=== PATIENT | female | born 1990 | race Caucasian/White ===

== ENCOUNTER 2016-10-10 10:32 | Emergency (ER) | payer OTHER ==
[~2016-10-10] VITALS: Ht 172.7 cm; Wt 74.8 kg
--- NOTE | 2016-10-10 11:15 | REP ---
Head CT without contrast: History: Question CVA. Comparison study: No comparison study. CT findings: Bone window settings demonstrate an intact bony calvarium. There is no evidence of skull fracture or incidental bony calvarial lesion. The visualized paranasal sinuses appear clear. No intraorbital abnormality is seen. On soft tissue window setting images; the lateral, third, and fourth ventricles are normal in size and position. Celaya-white differentiation pattern is normal above and below the tentorium. There are is no evidence of intracranial hemorrhage. No mass, edema, infarction, or midline shift is seen. No extra-axial fluid collection is appreciated. Impression: Negative noncontrast head CT. Signed by Darryn Palacios MD 10/10/2016 11:07 A
[2016-10-10 12:25] LABS: CONTROL LINE HCG INT CTR LINE PRESENT
[2016-10-10 12:26] LABS: INR 1.04
[2016-10-10 12:37] LABS: ANION GAP 8 MEQ/L (8-16); BLOOD UREA NITROGEN 13 MG/DL (7-18); CALCIUM LEVEL 9.4 MG/DL (8.5-10.1); CARBON DIOXIDE LEVEL 25 MEQ/L (21-32); CHLORIDE LEVEL 106 MEQ/L (98-107); CREATININE FOR GFR 0.74 MG/DL (0.55-1.02); GLOMERULAR FILTRATION RATE > 60.0 (>60); GLUCOSE, FASTING 89 MG/DL (70-105); POTASSIUM SERUM 4.1 MEQ/L (3.5-5.1); SODIUM LEVEL 139 MEQ/L (136-145)
[2016-10-10 12:47] LABS: BASO % 0.4 % (0.0-1.0); EOS # 0.2 K/mm3 (0.0-0.50); EOS % 2.1 % (0.0-3.0); LARGE UNSTAINED CELL # 0.2 K/mm3 (0.0-0.4); LARGE UNSTAINED CELL % 1.9 % (0.0-4.0); LYMPH % 17.4 % (24.0-44.0); MEAN CORPUSCULAR HEMOGLOBIN 30.3 pg (27.0-33.0); MEAN CORPUSCULAR HGB CONC 32.9 g/dl (32.0-36.5); MEAN CORPUSCULAR VOLUME 92.3 fl (80.0-96.0); MONO # 0.9 K/mm3 (0.0-0.8); MONO % 7.7 % (0.0-5.0); NEUTROPHILS # 8.1 K/mm3 (1.8-7.7); NEUTROPHILS % 70.5 % (36.0-66.0); PLATELET COUNT, AUTOMATED 328 k/mm3 (150-450); RED CELL DISTRIBUTION WIDTH 12.1 % (11.5-14.5); WHITE BLOOD COUNT 11.5 K/mm3 (4.0-10.0)
--- NOTE | 2016-10-10 13:02 | REP ---
MRI brain without contrast: 10/10/2016. Clinical history: Rule out stroke. Comparison: CT brain without contrast 10/10/2016. Technique sagittal T1-weighted axial T1, T2 FLAIR gradient-echo images and diffusion-weighted images with ADC mapping sequences. Ventricles are midline, symmetric and without dilatation or displacement. Basal ganglia symmetric and normal. The hartman-white junction differentiation was well maintained. V2 and FLAIR sequences show no periventricular deep central or subcortical white matter hyperintense T2 and FLAIR foci foci. Cortical stripe preserved. There is no vascular territory infarct, hemorrhage, mass or mass effect. No extra-axial fluid collections. The brainstem and cerebellum are grossly intact. Basal cisterns intact. Now it is no posterior fossa hemorrhage. Seventh/eighth cranial nerve complexes and mastoids normal. There is minor ethmoid sinus mucosal thickening with deviation nasal septum towards the right and a left-sided contra bullosa of the middle turbinate. Mucous retention cyst anterior floor of the left maxillary sinus. Minor mucosal thickening posteriorly in the right maxillary sinus with a few ethmoid air cells with mucosal thickening on the left sphenoid and frontal sinuses with right mass with right ethmoids intact. Globes and intraorbital contents symmetric and grossly intact. The corpus callosum, optic chiasm and pituitary are normal. There is ample subarachnoid space at the craniocervical junction with no cerebellar tonsillar ectopia. Diffusion weighted images and the ADC mapping sequences show no evidence of acute ischemia. Impression: 1. No intracranial hemorrhage, acute infarct, edema or mass. No white matter tract abnormality. 2. There is no mass or extrinsic mass effect on the brain. Posterior fossa and brainstem also grossly intact. 3. The corpus callosum, optic chiasm, pituitary and other midline structures all unremarkable. Signed by Benny Caballero MD 10/10/2016 12:53 P
--- NOTE | 2016-10-10 13:51 | REP ---
Clinical: Cerebrovascular accident. Findings: Scoliosis appreciated. Right middle lobe atelectasis cannot be excluded. Cardiac silhouette is normal. No focal consolidation, effusion, or pneumothorax. Skeletal structures intact. Impression: Scoliosis. Cannot exclude trace right middle lobe atelectasis. Signed by Linus Nguyễn MD 10/10/2016 01:43 P
[2016-10-10] MEDS ORDERED: predniSONE 50 MG TAB PO ONE (15:00)
[2016-10-10] MEDS ORDERED: valACYclovir HCL 500 MG TAB PO ONE (15:00)
[2016-10-10] MEDS ORDERED: VALT1TAB PO (15:13)
[2016-10-10] MEDS ORDERED: PRED20TA PO (15:13)
[2016-10-10] MEDS ORDERED: ARTI99.0 OP (15:16)
[2016-10-10 15:37] VITALS: BP 131/81
--- NOTE | 2016-10-10 21:14 | ECGEPIP ---
Stationary ECG Study [facility] - ED Test Date: 2016-10-10 Pat Name: JUNE ABDUL Department: Room: - Gender: F [employer]: azam : 1990 Requested By: Connor Rivas Order Number: [id number] Reading MD: Connor Rivas Measurements Intervals [place] Rate: 80 P: 65 ME: 140 QRS: 91 QRSD: 97 T: 44 QT: 361 QTc: 419 Interpretive Statements SINUS RHYTHM WITH SINUS ARRHYTHMIA BORDERLINE RIGHT AXIS DEVIATION NO OLD ECG FOR COMPARISON Electronically Signed On 10-10-2016 21:14:02 EDT by Connor Rivas
[2016-10-12 00:07] LABS: Lyme Disease IgG/IgM Antibodie <0.91 ISR (0.00-0.90); Lyme Disease IgM Ab Quantitati <0.80 index (0.00-0.79)
== END 2016-10-10 16:02 | disposition home or self-care (01) ==
LOC: M ED 14:24
DX: G51.0 Bell's palsy (principal); M41.9 Scoliosis, unspecified

== ENCOUNTER 2017-09-15 15:31 | Inpatient (IN) | payer OTHER ==
[2017-09-15] MEDS: LACTATED RINGER'S 1000 ML IV (17:59)
[2017-09-15] MEDS: LR 1,000 ML IV (18:48)
[2017-09-15 18:54] LABS: HEMATOCRIT 38.8 % (36.0-47.0); MEAN CORPUSCULAR HGB CONC 33.5 g/dl (32.0-36.5); MEAN CORPUSCULAR VOLUME 89.4 fl (80.0-96.0); PLATELET COUNT, AUTOMATED 270 10^3/uL (150-450); RED BLOOD COUNT 4.34 10^6/uL (4.00-5.40); RED CELL DISTRIBUTION WIDTH 13.6 % (11.5-14.5); WHITE BLOOD COUNT 16.1 10^3/uL (4.0-10.0)
[2017-09-15] MEDS: OXYTOCIN DRIP 30 UNITS in APPROPRIATE DILUENT 1 EA IV (21:40)
[2017-09-16] MEDS: PROMETHAZINE INJ 25 MG/ML VIAL (J2550) IV (01:30)
[2017-09-16] MEDS: NALBUPHINE HCL 10 MG/ML AMP (J2300) IM (01:30)
[2017-09-16] MEDS: NALBUPHINE HCL 10 MG/ML AMP (J2300) IV (01:30)
[2017-09-16] MEDS: LR 1,000 ML IV (01:59)
[2017-09-16] MEDS: OXYTOCIN DRIP 30 UNITS in APPROPRIATE DILUENT 1 EA IV (06:01)
[2017-09-16] MEDS ORDERED: METOCLOPRAMIDE INJ 10MG/2ML VIAL (J2765) IV (06:15)
[2017-09-16] MEDS: LIDOCAINE 1% MDV 20ML VIAL INFIL (06:15)
[2017-09-16] MEDS: PRENATAL VITAMINS CHEWABLE TABLET PO (09:03)
[2017-09-16] MEDS: DOCUSATE SODIUM 100 MG CAP PO ×2 (09:03→19:53)
[2017-09-16] MEDS: IBUPROFEN 800 MG TAB PO (19:54)
[2017-09-17] MEDS: DOCUSATE SODIUM 100 MG CAP PO ×2 (08:45→20:41)
[2017-09-17] MEDS: ACETAMINOPHEN TAB 650MG DOSE (2X325MG) PO (08:45)
[2017-09-17] MEDS: PRENATAL VITAMINS CHEWABLE TABLET PO (08:45)
[2017-09-17] MEDS: IBUPROFEN 800 MG TAB PO (20:41)
[2017-09-17] MEDS: DIBUCAINE 1% OINTMENT 30GM TOP (20:41)
[2017-09-18] MEDS: RHOGAM 300 MCG (1500 IU) INJ (J2790) IM (05:48)
[2017-09-18] MEDS: MEASLES,MUMPS,RUBELLA VACCINE INJ (MMR-II) (90707) SC (05:49)
[2017-09-18] MEDS: DOCUSATE SODIUM 100 MG CAP PO (09:12)
[2017-09-18] MEDS: PRENATAL VITAMINS CHEWABLE TABLET PO (09:12)
== END 2017-09-18 11:50 | disposition home or self-care (01) | DRG 775 ==
LOC: M LDI 15:31 → M OBS 09-16 12:00
PROVIDERS: Obstetrics & Gynecology
PROC: 10E0XZZ Delivery of Products of Conception, External Approach (ICD-10-PCS; principal; 2017-09-16)
PROC: 0HQ9XZZ Repair Perineum Skin, External Approach (ICD-10-PCS; 2017-09-16)
DX: O48.0 Post-term pregnancy (principal); Z37.0 Single live birth; Z3A.40 40 weeks gestation of pregnancy; O70.0 First degree perineal laceration during delivery